=== PATIENT | male | born 1935 | race African-American/Black ===

== ENCOUNTER 2017-10-28 15:19 | Observation (INO) | payer BC, MEDICARE ==
[~2017-10-28] VITALS: Ht 177.8 cm; Wt 129.3 kg
[~2017-10-28 15:19] MED LIST: LISI10TA5 PO; MOTRIN; PROT40 PO; SIMV10TA6 PO
[2017-10-28 17:48] LABS: HEMATOCRIT. 41.3 % (42.0-52.0); HEMOGLOBIN. 13.7 g/dL (14.0-18.0); MEAN CORPUSCULAR HEMOGLOBIN 27.9 pg (28.0-32.0); MEAN CORPUSCULAR VOLUME 84.4 fL (80.0-94.0); MEAN PLATELET VOLUME 8.8 fl (7.4-10.4); PLATELET 172 x1000/uL (130-400); RED CELL DISTRIBUTION WIDTH 14.4 % (11.6-14.6)
[2017-10-28 17:52] LABS: INR 1.4; PROTHROMBIN TIME 14.2 sec (9.4-11.6)
[2017-10-28 17:56] LABS: CARBON DIOXIDE 25 mEq/L (21-32); CHLORIDE 100 mEq/L (98-107)
[2017-10-28 17:59] LABS: PLATELET ESTIMATE NORMAL
[2017-10-28 18:01] LABS: TROPONIN I < 0.02 ng/mL (0.00-0.04)
[2017-10-28] MEDS ORDERED: FUROSEMIDE 40MG/4ML VIAL IVP ONE (19:15)
[2017-10-28] MEDS ORDERED: CEFTRIAXONE 1 G PREMIX 50 ML IV ONE (20:15)
[2017-10-28] MEDS ORDERED: ENOXAPARIN 100MG/ML SYR SUBCUT ONE (20:15)
[2017-10-28 22:11] LABS: CLARITY URINE CLOUDY (CLEAR); COLOR URINE YELLOW (YELLOW); KETONES URINE 2+ (NEGATIVE); LEUKOCYTE ESTERASE URINE 3+ (NEGATIVE); NITRITE URINE POSITIVE (NEGATIVE); OCCULT BLOOD URINE 3+ (NEGATIVE); PH URINE 5.5 (4.5-8.0); PROTEIN URINE TRACE (NEGATIVE); SPECIFIC GRAVITY URINE 1.012 (1.005-1.030)
[2017-10-29 00:20] VITALS: BP 141/68
[2017-10-29] MEDS ORDERED: ACETAMINOPHEN 325MG TABLET PO PRN (01:15)
[2017-10-29] MEDS ORDERED: CLONIDINE 0.1MG TABLET PO PRN (01:15)
[2017-10-29] MEDS: SODIUM CHLORIDE 0.45% 1,000 ML IV SCH ×2 (03:38→14:35)
[2017-10-29 04:01] VITALS: BP 129/66
[2017-10-29] MEDS: PIPERACILLIN/TAZ 3.375G PREMIX 50 ML IV SCH ×4 (04:08→20:21)
[2017-10-29 07:05] LABS: HEMATOCRIT. 39.8 % (42.0-52.0); HEMOGLOBIN. 13.2 g/dL (14.0-18.0); MEAN CORPUSCULAR HEMOGLOBIN 28.3 pg (28.0-32.0); MEAN CORPUSCULAR VOLUME 84.9 fL (80.0-94.0); MEAN PLATELET VOLUME 9.1 fl (7.4-10.4); PLATELET 144 x1000/uL (130-400); RED BLOOD CELL COUNT 4.68 mill/uL (4.7-6.1); RED CELL DISTRIBUTION WIDTH 14.7 % (11.6-14.6)
[2017-10-29 08:00] VITALS: BP 133/58
[2017-10-29] MEDS: AMLODIPINE 5MG TABLET PO SCH (08:30)
[2017-10-29 08:50] LABS: CARBON DIOXIDE 28 mEq/L (21-32); CHLORIDE 98 mEq/L (98-107)
[2017-10-29] MEDS ORDERED: ENOXAPARIN 40MG/0.4ML SYR SUBCUT SCH (09:00)
[2017-10-29 09:44] LABS: PLATELET ESTIMATE NORMAL
[2017-10-29 12:00] VITALS: BP 132/65
[2017-10-29] MEDS ORDERED: INFLUENZA VIRUS VACCINE 0.5ML SYR IM ONE (12:00)
[2017-10-29 16:00] VITALS: BP 127/61
[2017-10-29] MEDS: APIXABAN 5 MG TABLET PO SCH (18:07)
[2017-10-29 20:00] VITALS: BP 139/71
[2017-10-29] MEDS ORDERED: POTASSIUM CHLORIDE 20MEQ TABLET SR PO NR (20:15)
[2017-10-29] MEDS ORDERED: FURO40TA5 PO (20:46)
[2017-10-29] MEDS ORDERED: FINA5TAB11 PO (20:46)
[2017-10-29] MEDS ORDERED: SIMV10TA6 PO (20:46)
[2017-10-29] MEDS ORDERED: METF500T4 PO (20:46)
[2017-10-29] MEDS ORDERED: POTA10TA11 PO (20:46)
[2017-10-29] MEDS ORDERED: LEVO500T89 PO (20:46)
[2017-10-29] MEDS ORDERED: LISI10TA5 PO (20:46)
[2017-10-30] VITALS: BP 138/68
[2017-10-30] MEDS: SODIUM CHLORIDE 0.45% 1,000 ML IV SCH (03:43)
[2017-10-30] MEDS: PIPERACILLIN/TAZ 3.375G PREMIX 50 ML IV SCH ×2 (03:43→09:16)
[2017-10-30 04:00] VITALS: BP 112/61
[2017-10-30 08:00] VITALS: BP 105/66
[2017-10-30] MEDS: AMLODIPINE 5MG TABLET PO SCH (09:00)
[2017-10-30] MEDS: APIXABAN 5 MG TABLET PO SCH ×2 (09:16→16:07)
[2017-10-30] MEDS: HYDROCODONE/ACETAMINOPHEN 5/325MG TABLET PO PRN ×2 (10:54→16:08)
[2017-10-30 12:00] VITALS: BP 126/49
[2017-10-30] MEDS ORDERED: LIDOCAINE HCL 1% 20ML VIAL (Pyxis) INJ ONE (14:44)
[2017-10-30] MEDS ORDERED: SODIUM BICARBONATE 4% (2.4MEQ) 5ML VIAL IV ONE (14:44)
[2017-10-30 16:00] VITALS: BP 135/68
[2017-10-30] MEDS ORDERED: GENTAMICIN SULFATE 200 MG in SODIUM CHLORIDE 0.9% 100 ML IV NR (16:00)
[2017-10-30] MEDS ORDERED: CEFTRIAXONE 1 G PREMIX 50 ML IV SCH (17:00)
[2017-10-30 17:40] VITALS: BP 135/68
[2017-10-30 17:58] LABS: BASOPHILS % 0.9 % (0.0-2.0); HEMATOCRIT. 36.8 % (42.0-52.0); HEMOGLOBIN. 12.4 g/dL (14.0-18.0); LYMPHOCYTES % 16.2 % (20.0-50.0); MEAN CORPUSCULAR VOLUME 83.5 fL (80.0-94.0); MEAN PLATELET VOLUME 8.8 fl (7.4-10.4); MONOCYTES % 13.7 % (2.0-8.0); NEUTROPHILS % 65.2 % (40.0-76.0); PLATELET 170 x1000/uL (130-400); RED BLOOD CELL COUNT 4.41 mill/uL (4.7-6.1); RED CELL DISTRIBUTION WIDTH 14.3 % (11.6-14.6)
[2017-10-30 18:11] LABS: CARBON DIOXIDE 31 mEq/L (21-32); CHLORIDE 97 mEq/L (98-107)
[2017-10-31] MEDS ORDERED: GENTAMICIN SULFATE 140 MG in SODIUM CHLORIDE 0.9% 100 ML IV SCH (10:00)
== END 2017-10-30 20:10 ==
LOC: ER 16:20 → 6WST 20:02 → INTOOBSV 20:02 → ENRESERV 21:05
PROVIDERS: ADMIT Internal Medicine; ATTEND Internal Medicine
DX: I82.402 Acute embolism and thrombosis of unspecified deep veins of left lower extremity (principal); I10 Essential (primary) hypertension; E78.5 Hyperlipidemia, unspecified; A41.9 Sepsis, unspecified organism; N39.0 Urinary tract infection, site not specified; E66.9 Obesity, unspecified; E11.9 Type 2 diabetes mellitus without complications; Z79.01 Long term (current) use of anticoagulants
CPT/HCPCS: 36415; 36569; 51702; 70551; 71045; 76937; 77001; 80048; 80053; 81001; 82962; 83880; 84484; 85025; 85610; 87040; 87077; 87086; 87186; 93005; 93970; 96361; 96365; 96367; 96372; 96375; 96376; 99285; C1725; G0378; J0696; J1650; J1940; J2543; J3490; C1893; J1580; J7050

== ENCOUNTER 2017-11-16 13:53 | Emergency (ER) | payer MEDICARE, OTHER ==
[~2017-11-16] VITALS: Ht 182.9 cm; Wt 140.0 kg
[~2017-11-16 13:53] MED LIST changes: +FINA5TAB11 PO; +FURO40TA5 PO; +LEVO500T89 PO; +METF500T4 PO; +POTA10TA11 PO
[2017-11-16] MEDS ORDERED: SODIUM CHLORIDE 0.9% 1,000 ML IV ONE (15:15)
[2017-11-16] MEDS ORDERED: KETOROLAC 30MG/ML VIAL IV STA (15:15)
[2017-11-16] MEDS ORDERED: ONDANSETRON HCL 4MG/2ML VIAL IV STA (15:15)
[2017-11-16 15:38] LABS: INR 1.2
[2017-11-16 15:39] LABS: BASOPHILS % 0.6 % (0.0-2.0); HEMATOCRIT. 42.7 % (42.0-52.0); HEMOGLOBIN. 14.4 g/dL (14.0-18.0); LYMPHOCYTES % 11.8 % (20.0-50.0); MEAN CORPUSCULAR HEMOGLOBIN 28.1 pg (28.0-32.0); MEAN CORPUSCULAR VOLUME 83.2 fL (80.0-94.0); MEAN PLATELET VOLUME 7.9 fl (7.4-10.4); MONOCYTES % 11.1 % (2.0-8.0); NEUTROPHILS % 76.5 % (40.0-76.0); PLATELET 348 x1000/uL (130-400); RED BLOOD CELL COUNT 5.13 mill/uL (4.7-6.1); RED CELL DISTRIBUTION WIDTH 14.3 % (11.6-14.6)
[2017-11-16 15:40] LABS: CHLORIDE 91 mEq/L (98-107)
[2017-11-16 21:42] VITALS: BP 122/80
== END 2017-11-16 22:22 ==
LOC: ER 14:11
DX: R10.9 Unspecified abdominal pain (principal); R11.2 Nausea with vomiting, unspecified; I10 Essential (primary) hypertension; E11.9 Type 2 diabetes mellitus without complications; N40.0 Benign prostatic hyperplasia without lower urinary tract symptoms
CPT/HCPCS: 36415; 74176; 80053; 83690; 85025; 85610; 96361; 96374; 96375; 99285; J1885; J2405; J7030

== ENCOUNTER 2018-03-29 06:47 | Observation (INO) | payer MEDICARE ==
[~2018-03-29] VITALS: Ht 177.8 cm; Wt 112.9 kg
[~2018-03-29 06:47] MED LIST changes: -METF500T4 PO; +METF500T6 PO
[2018-03-29] MEDS ORDERED: SODIUM CHLORIDE 0.9% 1,000 ML IV ONE (07:27)
[2018-03-29] MEDS ORDERED: ONDANSETRON HCL 4MG/2ML VIAL IV STA (07:27)
[2018-03-29] MEDS ORDERED: MORPHINE SULFATE 4 MG/ML CPJ (NOT FOR IM USE) IV STA (07:27)
[2018-03-29 07:49] LABS: HEMATOCRIT. 35.9 % (42.0-52.0); HEMOGLOBIN. 11.9 g/dL (14.0-18.0); MEAN CORPUSCULAR HEMOGLOBIN 27.7 pg (28.0-32.0); MEAN CORPUSCULAR VOLUME 83.2 fL (80.0-94.0); MEAN PLATELET VOLUME 8.2 fl (7.4-10.4); PLATELET 294 x1000/uL (130-400); RED BLOOD CELL COUNT 4.32 mill/uL (4.7-6.1); RED CELL DISTRIBUTION WIDTH 17.4 % (11.6-14.6)
[2018-03-29 07:53] LABS: CHLORIDE 94 mEq/L (98-107)
[2018-03-29 07:57] LABS: INR 1.2; PROTHROMBIN TIME 12.1 sec (9.4-11.6)
[2018-03-29 08:44] LABS: PLATELET ESTIMATE NORMAL
[2018-03-29 09:59] LABS: CLARITY URINE TURBID (CLEAR); COLOR URINE DARK YELLOW (YELLOW); KETONES URINE 1+ (NEGATIVE); LEUKOCYTE ESTERASE URINE 2+ (NEGATIVE); NITRITE URINE POSITIVE (NEGATIVE); OCCULT BLOOD URINE 3+ (NEGATIVE); PROTEIN URINE 2+ (NEGATIVE); SPECIFIC GRAVITY URINE 1.019 (1.005-1.030)
[2018-03-29] MEDS ORDERED: CEFTRIAXONE 1 G PREMIX 50 ML IV ONE (10:15)
[2018-03-29] MEDS ORDERED: SODIUM CHLORIDE 0.9% 1000ML BAG (SEPSIS BOLUS) IV ONE (12:00)
[2018-03-29] MEDS ORDERED: ACETAMINOPHEN 650MG SUPP PR PRN (13:45)
[2018-03-29] MEDS ORDERED: ONDANSETRON HCL 4MG/2ML VIAL IV PRN (13:45)
[2018-03-29] MEDS ORDERED: MAGNESIUM/ALUMINUM HYDROXIDE/SIMETHICONE 30ML UDC PO PRN (13:45)
[2018-03-29] MEDS ORDERED: DEXTROSE 50% WATER 50ML SYRINGE IV PRN (13:45)
[2018-03-29] MEDS ORDERED: IPRATROPIUM/ALBUTEROL 0.5-3(2.5)MG/3ML NEB INH PRN (13:45)
[2018-03-29] MEDS ORDERED: HYDROCODONE/ACETAMINOPHEN 5/325MG TABLET PO PRN (13:45)
[2018-03-29] MEDS ORDERED: ACETAMINOPHEN 325MG TABLET PO PRN (13:45)
[2018-03-29] MEDS ORDERED: CLONIDINE 0.1MG TABLET PO PRN (13:45)
[2018-03-29] MEDS ORDERED: DIPHENHYDRAMINE 50MG/ML VIAL IV PRN (13:45)
[2018-03-29] MEDS ORDERED: NA PHOS,M-B/NA PHOS,DI-BA ENEMA 118ML PR PRN (13:45)
[2018-03-29 14:00] VITALS: BP 105/52
[2018-03-29 16:00] VITALS: BP 105/52
[2018-03-29] MEDS: BLOOD SUGAR DIAGNOSTIC STRIP TEST SCH ×2 (17:10→20:58)
[2018-03-29] MEDS: INSULIN LISPRO 100 UNITS/ML SUBCUT SCH ×2 (17:40→20:58)
[2018-03-29] MEDS ORDERED: CEFTRIAXONE 1 G PREMIX 50 ML IV SCH (18:00)
[2018-03-29 18:35] VITALS: BP 121/69
[2018-03-29] MEDS: ENOXAPARIN 30MG/0.3ML SYR SUBCUT SCH (19:25)
[2018-03-29] MEDS ORDERED: POTASSIUM CHLORIDE 20MEQ TABLET SR PO NR (19:30)
[2018-03-29 20:00] VITALS: BP 122/67
[2018-03-29] MEDS ORDERED: ATORVASTATIN CALCIUM 10MG TABLET PO SCH (21:00)
[2018-03-30] VITALS (7 sets, daily range): BP systolic 118–151; BP diastolic 69–81
[2018-03-30] MEDS ORDERED: MIRT15TA MT (03:58)
[2018-03-30] MEDS ORDERED: POLY119P2 MT (03:58)
[2018-03-30] MEDS ORDERED: DOCU-138 MT (03:58)
[2018-03-30] MEDS ORDERED: ACET-2178 MT (03:58)
[2018-03-30] MEDS ORDERED: TRAM50TA MT (03:58)
[2018-03-30] MEDS ORDERED: LACT10SO6 MT (03:58)
[2018-03-30] MEDS ORDERED: MEGE40TA27 MT (03:58)
[2018-03-30] MEDS ORDERED: APIX2.5T MT (03:58)
[2018-03-30] MEDS: INSULIN LISPRO 100 UNITS/ML SUBCUT SCH ×3 (06:24→17:40)
[2018-03-30] MEDS: ENOXAPARIN 30MG/0.3ML SYR SUBCUT SCH (06:28)
[2018-03-30] MEDS: BLOOD SUGAR DIAGNOSTIC STRIP TEST SCH ×3 (06:28→17:10)
[2018-03-30 07:07] LABS: BASOPHILS % 0.5 % (0.0-2.0); EOSINOPHILS % 0.2 % (0.0-5.0); HEMATOCRIT. 35.5 % (42.0-52.0); HEMOGLOBIN. 11.7 g/dL (14.0-18.0); LYMPHOCYTES % 10.2 % (20.0-50.0); MEAN CORPUSCULAR HEMOGLOBIN 27.6 pg (28.0-32.0); MEAN CORPUSCULAR VOLUME 83.3 fL (80.0-94.0); MEAN PLATELET VOLUME 8.2 fl (7.4-10.4); MONOCYTES % 9.3 % (2.0-8.0); NEUTROPHILS % 79.8 % (40.0-76.0); PLATELET 261 x1000/uL (130-400); RED BLOOD CELL COUNT 4.26 mill/uL (4.7-6.1); RED CELL DISTRIBUTION WIDTH 17.4 % (11.6-14.6)
[2018-03-30 07:10] LABS: CHLORIDE 98 mEq/L (98-107)
[2018-03-30] MEDS ORDERED: PANTOPRAZOLE 40MG DR TABLET PO SCH (07:10)
[2018-03-30 07:41] LABS: LDL CHOLESTEROL 62 mg/dL (5-100)
[2018-03-30 07:42] LABS: HDL CHOLESTEROL 41 mg/dL (40-59); T4 FREE 1.32 ng/dL (0.76-1.46)
[2018-03-30] MEDS ORDERED: CEFTRIAXONE 1 G PREMIX 50 ML IV SCH ×2 (09:00)
[2018-03-30] MEDS ORDERED: LISINOPRIL 10MG TABLET PO SCH (09:00)
[2018-03-30] MEDS ORDERED: FUROSEMIDE 40MG TABLET PO SCH (09:00)
[2018-03-30] MEDS ORDERED: FINASTERIDE 5MG TABLET PO SCH (09:00)
[2018-03-30] MEDS ORDERED: PIPERACILLIN/TAZ 3.375G PREMIX 50 ML IV SCH (18:00)
== END 2018-03-30 21:05 | disposition short-term general hospital (02) ==
LOC: ER 06:47 → INTOOBSV 10:33 → 8WST 10:33 → EDBEDREQ 10:36 → EDBEDREQTM 10:38 → EDBEDREQ 10:38 → SUPCPDRO 13:36 → ENRESERV 14:25
PROVIDERS: ADMIT Internal Medicine; ATTEND Internal Medicine
DX: E87.2 Acidosis (principal); N39.0 Urinary tract infection, site not specified; D72.829 Elevated white blood cell count, unspecified; D64.9 Anemia, unspecified; E66.9 Obesity, unspecified; E78.5 Hyperlipidemia, unspecified; E87.6 Hypokalemia; E87.8 Other disorders of electrolyte and fluid balance, not elsewhere classified; F03.90 Unspecified dementia, unspecified severity, without behavioral disturbance, psychotic disturbance, mood disturbance, and anxiety; K80.20 Calculus of gallbladder without cholecystitis without obstruction; K57.90 Diverticulosis of intestine, part unspecified, without perforation or abscess without bleeding; E11.65 Type 2 diabetes mellitus with hyperglycemia; I11.0 Hypertensive heart disease with heart failure; I50.33 Acute on chronic diastolic (congestive) heart failure; Z86.73 Personal history of transient ischemic attack (TIA), and cerebral infarction without residual deficits
CPT/HCPCS: 36415; 73630; 74176; 80053; 80061; 81003; 82962; 83036; 83605; 83690; 83880; 84439; 84443; 84484; 85025; 85610; 87040; 87077; 87086; 87186; 96361; 96365; 96366; 96372; 96375; 97162; 99291; G0378; J0696; J1650; J2270; J2405; J2543; J7030; A4315

== ENCOUNTER 2018-05-08 14:04 | Inpatient (IN) | payer MEDICARE ==
[~2018-05-08] VITALS: Ht 175.3 cm; Wt 107.0 kg
[~2018-05-08 14:04] MED LIST changes: +ACET-2178 MT; +APIX2.5T MT; +DOCU-138 MT; +LACT10SO6 MT; +MEGE40TA27 MT; +MIRT15TA MT; -MOTRIN; +POLY119P2 MT; +TRAM50TA MT
[2018-05-08] MEDS ORDERED: SODIUM CHLORIDE 0.9% 1000ML BAG (SEPSIS BOLUS) IV ONE (14:45)
[2018-05-08 15:09] LABS: HEMATOCRIT. 41.9 % (42.0-52.0); HEMOGLOBIN. 14.1 g/dL (14.0-18.0); MEAN CORPUSCULAR HEMOGLOBIN 27.7 pg (28.0-32.0); MEAN CORPUSCULAR VOLUME 82.2 fL (80.0-94.0); MEAN PLATELET VOLUME 8.9 fl (7.4-10.4); PLATELET 267 x1000/uL (130-400); RED CELL DISTRIBUTION WIDTH 17.4 % (11.6-14.6)
[2018-05-08 15:15] LABS: INR 1.2; PROTHROMBIN TIME 12.9 sec (9.4-11.6)
[2018-05-08 15:21] LABS: CHLORIDE 84 mEq/L (98-107)
[2018-05-08 15:36] LABS: CLARITY URINE TURBID (CLEAR); KETONES URINE 1+ (NEGATIVE); LEUKOCYTE ESTERASE URINE 2+ (NEGATIVE); NITRITE URINE POSITIVE (NEGATIVE); OCCULT BLOOD URINE 3+ (NEGATIVE); PROTEIN URINE 2+ (NEGATIVE); SPECIFIC GRAVITY URINE 1.022 (1.005-1.030)
[2018-05-08 15:43] LABS: COLOR URINE YELLOW (YELLOW)
[2018-05-08 16:29] LABS: PLATELET ESTIMATE NORMAL
[2018-05-08] MEDS ORDERED: VANCOMYCIN 1 G PREMIX 200 ML IV SCH (16:45)
[2018-05-08] MEDS ORDERED: PIPERACILLIN SODIUM/TAZOBACTAM 4.5 G in DEXT 5% WATER 100 ML IV SCH (16:45)
[2018-05-08] MEDS ORDERED: KCL 20MEQ/100ML PREMIX 100 ML IV ONE (17:15)
[2018-05-08] MEDS: VANCOMYCIN 1 G PREMIX 200 ML IV SCH (17:45)
[2018-05-08 19:15] VITALS: BP 96/62
[2018-05-08 20:00] VITALS: BP 104/71
[2018-05-08 22:00] VITALS: BP 109/64
[2018-05-08] MEDS ORDERED: ACETAMINOPHEN 325MG TABLET PO PRN (22:30)
[2018-05-08] MEDS ORDERED: DEXTROSE 50% WATER 50ML SYRINGE IV PRN (22:30)
[2018-05-08] MEDS ORDERED: POTASSIUM CHLORIDE 20MEQ TABLET SR PO SCH (22:30)
[2018-05-08] MEDS: SODIUM CHLORIDE 0.9% 1,000 ML IV SCH (22:50)
[2018-05-09] VITALS (12 sets, daily range): BP systolic 86–112; BP diastolic 48–70
[2018-05-09] MEDS ORDERED: CEFTRIAXONE IV SCH
[2018-05-09] MEDS ORDERED: NA PHOS,M-B/NA PHOS,DI-BA ENEMA 118ML PR ONE (00:30)
[2018-05-09] MEDS ORDERED: KCL 20MEQ/100ML PREMIX 100 ML IV SCH (02:00)
[2018-05-09] MEDS: CEFTRIAXONE 1 G PREMIX 50 ML IV SCH ×2 (03:34→12:52)
[2018-05-09] MEDS ORDERED: ONDANSETRON HCL 4MG TABLET PO PRN (04:00)
[2018-05-09 06:39] LABS: CHLORIDE 93 mEq/L (98-107)
[2018-05-09] MEDS: BLOOD SUGAR DIAGNOSTIC STRIP TEST SCH ×4 (07:30→21:04)
[2018-05-09] MEDS ORDERED: LIDOCAINE HCL 1% 20ML VIAL (Pyxis) INJ ONE (07:47)
[2018-05-09] MEDS ORDERED: SODIUM BICARBONATE 4% (2.4MEQ) 5ML VIAL IV ONE (07:48)
[2018-05-09] MEDS: INSULIN LISPRO 100 UNITS/ML SUBCUT SCH ×4 (07:55→21:00)
[2018-05-09 08:04] LABS: HEMATOCRIT. 35.2 % (42.0-52.0); HEMOGLOBIN. 11.7 g/dL (14.0-18.0); MEAN CORPUSCULAR HEMOGLOBIN 27.6 pg (28.0-32.0); MEAN CORPUSCULAR VOLUME 82.6 fL (80.0-94.0); PLATELET 215 x1000/uL (130-400); RED BLOOD CELL COUNT 4.26 mill/uL (4.7-6.1); RED CELL DISTRIBUTION WIDTH 17.2 % (11.6-14.6)
[2018-05-09] MEDS: APIXABAN 2.5 MG TABLET PO SCH ×2 (09:00→17:00)
[2018-05-09] MEDS ORDERED: DOCUSATE SODIUM 100MG CAPSULE PO SCH (09:00)
[2018-05-09] MEDS ORDERED: CEFTRIAXONE SODIUM 1 G/VIAL IM SCH (09:00)
[2018-05-09] MEDS: FAMOTIDINE 20MG TABLET PO SCH (09:14)
[2018-05-09] MEDS: POTASSIUM CHLORIDE 20MEQ/PACKET PO SCH ×2 (09:14→12:52)
[2018-05-09] MEDS: FINASTERIDE 5MG TABLET PO SCH (09:16)
[2018-05-09 10:15] LABS: PLATELET ESTIMATE NORMAL
[2018-05-09] MEDS: SODIUM CHLORIDE 0.9% 1,000 ML IV SCH (12:48)
[2018-05-09] MEDS: DEXT 5%/0.45% NACL KCL 20MEQ/L 1,000 ML IV SCH (14:12)
[2018-05-09] MEDS: DOCUSATE SODIUM SUGAR FREE 100MG/10ML UDC NG SCH (17:00)
[2018-05-09] MEDS ORDERED: LEVOFLOXACIN 250MG PREMIX 50 ML IV SCH (20:00)
[2018-05-09] MEDS ORDERED: KCL 20MEQ/100ML PREMIX 100 ML IV NR (20:30)
[2018-05-10] VITALS (12 sets, daily range): BP systolic 92–134; BP diastolic 35–69
[2018-05-10] MEDS: DEXT 5%/0.45% NACL KCL 20MEQ/L 1,000 ML IV SCH ×3 (03:17→21:00)
[2018-05-10 05:38] LABS: EOSINOPHILS % 0.1 % (0.0-5.0); HEMOGLOBIN. 10.7 g/dL (14.0-18.0); LYMPHOCYTES % 12.7 % (20.0-50.0); MEAN CORPUSCULAR HEMOGLOBIN 27.3 pg (28.0-32.0); MEAN PLATELET VOLUME 8.5 fl (7.4-10.4); MONOCYTES % 7.2 % (2.0-8.0); PLATELET 209 x1000/uL (130-400); RED BLOOD CELL COUNT 3.91 mill/uL (4.7-6.1); RED CELL DISTRIBUTION WIDTH 17.8 % (11.6-14.6)
[2018-05-10 06:29] LABS: CHLORIDE 101 mEq/L (98-107)
[2018-05-10] MEDS: BLOOD SUGAR DIAGNOSTIC STRIP TEST SCH ×4 (07:30→21:00)
[2018-05-10] MEDS: INSULIN LISPRO 100 UNITS/ML SUBCUT SCH ×4 (08:00→21:00)
[2018-05-10] MEDS: DOCUSATE SODIUM SUGAR FREE 100MG/10ML UDC NG SCH ×2 (09:00→17:00)
[2018-05-10] MEDS: APIXABAN 2.5 MG TABLET PO SCH ×2 (09:00→17:00)
[2018-05-10] MEDS: FAMOTIDINE 20MG TABLET PO SCH (10:37)
[2018-05-10] MEDS: FINASTERIDE 5MG TABLET PO SCH (10:37)
[2018-05-10] MEDS ORDERED: AMPICILLIN SOD/SULBACTAM NA 1.5 G in SODIUM CHLORIDE 0.9% 50 ML IV SCH (18:30)
[2018-05-10] MEDS: PIPERACILLIN/TAZ 3.375G PREMIX 50 ML IV SCH (20:00)
[2018-05-11] VITALS (13 sets, daily range): BP systolic 92–121; BP diastolic 30–72
[2018-05-11] MEDS: PIPERACILLIN/TAZ 3.375G PREMIX 50 ML IV SCH ×4 (02:00→21:58)
[2018-05-11 06:44] LABS: HEMATOCRIT 30.7 % (42.0-52.0); HEMOGLOBIN 10.5 g/dL (14.0-18.0); MEAN CORPUSCULAR HEMOGLOBIN 29.3 pg (28.0-32.0); MEAN CORPUSCULAR VOLUME 85.8 fL (80.0-94.0); PLATELET 192 x1000/uL (130-400); RED BLOOD CELL COUNT 3.57 mill/uL (4.7-6.1); RED CELL DISTRIBUTION WIDTH 17.9 % (11.6-14.6)
[2018-05-11 06:52] LABS: CHLORIDE 103 mEq/L (98-107)
[2018-05-11] MEDS: BLOOD SUGAR DIAGNOSTIC STRIP TEST SCH ×4 (07:30→21:00)
[2018-05-11] MEDS: INSULIN LISPRO 100 UNITS/ML SUBCUT SCH ×3 (08:00→17:24)
[2018-05-11] MEDS ORDERED: LIDOCAINE HCL 1% 20ML VIAL (Pyxis) INJ ONE (08:08)
[2018-05-11] MEDS: FAMOTIDINE 20MG TABLET PO SCH (09:37)
[2018-05-11] MEDS: FINASTERIDE 5MG TABLET PO SCH (09:37)
[2018-05-11] MEDS: DOCUSATE SODIUM SUGAR FREE 100MG/10ML UDC NG SCH ×2 (09:37→17:27)
[2018-05-11] MEDS: APIXABAN 2.5 MG TABLET PO SCH ×2 (09:38→17:27)
[2018-05-11] MEDS: DEXT 5%/0.45% NACL KCL 20MEQ/L 1,000 ML IV SCH ×3 (09:40→22:25)
[2018-05-12] VITALS (8 sets, daily range): BP systolic 104–136; BP diastolic 44–68
[2018-05-12] MEDS: PIPERACILLIN/TAZ 3.375G PREMIX 50 ML IV SCH ×4 (02:45→20:33)
[2018-05-12 05:38] LABS: HEMATOCRIT 29.1 % (42.0-52.0); HEMOGLOBIN 9.8 g/dL (14.0-18.0); MEAN CORPUSCULAR VOLUME 83.4 fL (80.0-94.0); PLATELET 203 x1000/uL (130-400); RED BLOOD CELL COUNT 3.49 mill/uL (4.7-6.1); RED CELL DISTRIBUTION WIDTH 17.7 % (11.6-14.6)
[2018-05-12 06:21] LABS: CHLORIDE 103 mEq/L (98-107)
[2018-05-12] MEDS: BLOOD SUGAR DIAGNOSTIC STRIP TEST SCH ×4 (06:48→20:37)
[2018-05-12] MEDS: FAMOTIDINE 20MG TABLET PO SCH (10:13)
[2018-05-12] MEDS: DOCUSATE SODIUM SUGAR FREE 100MG/10ML UDC NG SCH ×2 (10:13→18:09)
[2018-05-12] MEDS: FINASTERIDE 5MG TABLET PO SCH (10:13)
[2018-05-12] MEDS: DEXT 5%/0.45% NACL KCL 20MEQ/L 1,000 ML IV SCH (10:13)
[2018-05-12] MEDS: APIXABAN 2.5 MG TABLET PO SCH ×2 (12:39→18:07)
[2018-05-12] MEDS ORDERED: FAMOTIDINE 20MG TABLET PO SCH (21:00)
== END 2018-05-12 23:01 | disposition hospice, home (50) | DRG 871 ==
LOC: ER 14:04 → 5EST 17:16 → EDBEDREQSVC 17:26 → EDBEDREQ 17:26 → EDBEDREQTM 17:26 → CANRESERV 17:31 → ENRESERV 17:31 → EDBEDREQSVC 17:58 → CANRESERV 18:01 → ENRESERV 18:01 → EDBEDREQ 18:03 → ENRESERV 18:03 → 5WST 05-11 17:40
PROVIDERS: ADMIT Internal Medicine; ATTEND Internal Medicine
PROC: 05HY33Z Insertion of Infusion Device into Upper Vein, Percutaneous Approach (ICD-10-PCS; principal; 2018-05-09)
PROC: B54MZZA Ultrasonography of Right Upper Extremity Veins, Guidance (ICD-10-PCS; 2018-05-09)
PROC: 05HY33Z Insertion of Infusion Device into Upper Vein, Percutaneous Approach (ICD-10-PCS; 2018-05-11)
PROC: B54NZZA Ultrasonography of Left Upper Extremity Veins, Guidance (ICD-10-PCS; 2018-05-11)
DX: A41.9 Sepsis, unspecified organism (principal); G93.40 Encephalopathy, unspecified; N17.9 Acute kidney failure, unspecified; N39.0 Urinary tract infection, site not specified; D68.59 Other primary thrombophilia; E87.1 Hypo-osmolality and hyponatremia; I82.721 Chronic embolism and thrombosis of deep veins of right upper extremity; K80.66 Calculus of gallbladder and bile duct with acute and chronic cholecystitis without obstruction; I82.A21 Chronic embolism and thrombosis of right axillary vein; I82.B21 Chronic embolism and thrombosis of right subclavian vein; Z66 Do not resuscitate; E87.6 Hypokalemia; K59.00 Constipation, unspecified; L89.159 Pressure ulcer of sacral region, unspecified stage; D64.9 Anemia, unspecified; I13.10 Hypertensive heart and chronic kidney disease without heart failure, with stage 1 through stage 4 chronic kidney disease, or unspecified chronic kidney disease; E11.22 Type 2 diabetes mellitus with diabetic chronic kidney disease; E11.51 Type 2 diabetes mellitus with diabetic peripheral angiopathy without gangrene; E86.0 Dehydration; R62.7 Adult failure to thrive; R65.20 Severe sepsis without septic shock; N18.9 Chronic kidney disease, unspecified; F03.90 Unspecified dementia, unspecified severity, without behavioral disturbance, psychotic disturbance, mood disturbance, and anxiety; L89.619 Pressure ulcer of right heel, unspecified stage; R74.0 Nonspecific elevation of levels of transaminase and lactic acid dehydrogenase [LDH]; B96.89 Other specified bacterial agents as the cause of diseases classified elsewhere; Z74.01 Bed confinement status; Z86.73 Personal history of transient ischemic attack (TIA), and cerebral infarction without residual deficits; Z79.899 Other long term (current) drug therapy; Z22.322 Carrier or suspected carrier of Methicillin resistant Staphylococcus aureus
CPT/HCPCS: 36415; 36569; 71045; 74176; 74181; 76705; 76937; 78227; 80048; 80053; 80076; 81003; 82248; 82962; 83036; 83605; 83880; 84443; 84484; 85025; 85027; 85610; 87040; 87077; 87086; 87186; 92610; 93005; 93970; 96361; 96365; 96366; 96375; 99291; A6261; A9537; C1725; C1769; C1893; J0295; J0696; J1642; J1956; J2543; J3370; J3480; J3490; J7030; J7040; J7060